=== PATIENT | female | born 1985 | race Caucasian/White ===

== ENCOUNTER 2023-10-23 12:22 | Emergency (ER) | payer MEDICAID ==
[2023-10-23] MEDS ORDERED: Bupivacaine 0.25% 10 ML SDV INJECT ONE (13:17)
== END 2023-10-23 14:08 | disposition home or self-care (01) ==
LOC: LL.ED 12:22
DX: K02.9 Dental caries, unspecified (principal); K03.81 Cracked tooth; Z88.0 Allergy status to penicillin
CPT/HCPCS: 64400; 99282; J3490

== ENCOUNTER 2023-12-16 00:58 | Emergency (ER) | payer SELFPAY ==
[2023-12-16] MEDS ORDERED: Ondansetron 4 MG Tab.DIS PO ONE (01:02)
[2023-12-16] MEDS: Ondansetron 4 MG/2 ML SDV IVPUSH ONE (01:22)
[2023-12-16] MEDS: Lactated Ringers 1,000 ML IV ONE (01:22)
[2023-12-16 01:31] LABS: BASOPHILS ABSOLUTE AUTO 0.03 K/uL (0.00-0.20); BASOPHILS PERCENT AUTO 0.2 % (0.0-2.0); HEMATOCRIT 40.6 % (34.0-46.0); HEMOGLOBIN 13.7 g/dL (11.7-15.5); LYMPHOCYTES ABSOLUTE AUTO 1.09 K/uL (0.50-3.50); LYMPHOCYTES PERCENT AUTO 6.5 % (10.0-50.0); MEAN CORPUSCULAR HEMOGLOBIN 31.4 pg (28.2-33.3); MEAN CORPUSCULAR HGB CONC 33.7 g/dL (31.7-36.0); MEAN CORPUSCULAR VOLUME 92.9 fL (84.0-98.0); MONOCYTES ABSOLUTE AUTO 0.51 K/uL (0.00-1.00); NEUTROPHILS ABSOLUTE AUTO 15.23 K/uL (1.40-7.00); NEUTROPHILS PERCENT AUTO 90.3 % (45.0-80.0); PLATELET COUNT,PLT 333 K/uL (150-350); RED BLOOD CELL COUNT 4.37 M/uL (3.77-5.09); RED CELL DISTRIBUTION WIDTH 13.1 % (11.2-14.1); WHITE BLOOD CELL COUNT,WBC 16.9 K/uL (4.0-10.2)
[2023-12-16 01:51] LABS: PROTHROMBIN TIME 10.2 SEC (9.0-11.1)
[2023-12-16 02:00] LABS: ALANINE AMINOTRANSFERASE,ALT 36 U/L (12-78); ALBUMIN 4.4 g/dL (3.4-5.0); ALKALINE PHOSPHATASE 58 IU/L (46-116); ANION GAP 16.6 meq/L (7-15); ASPARTATE AMNIOTRANSFERASE,AST 23 U/L (15-37); BILIRUBIN TOTAL 0.4 mg/dL (0.2-1.0); BLOOD UREA NITROGEN,BUN 9 mg/dL (7-18); CALCIUM 9.4 mg/dL (8.5-10.1); CARBON DIOXIDE,CO2 23.4 mmol/L (21.0-32.0); CHLORIDE,CL 105 mmol/L (98-107); CREATININE 0.89 mg/dL (0.51-1.17); ESTIMATED GFR 85 mL/min (>=60); GLUCOSE RANDOM 162 mg/dL (70-99); POTASSIUM,K 3.7 mmol/L (3.5-5.1); PROTEIN TOTAL,TP 8.4 g/dL (6.4-8.2); SODIUM,NA 145 mmol/L (136-145)
[2023-12-16] MEDS ORDERED: Naloxone 0.4 MG/ML SDV IVPUSH PRN (02:23)
[2023-12-16] MEDS: fentaNYL 50 MCG/ML SDV IVPUSH ONE (02:31)
[2023-12-16] MEDS: Prochlorperazine 10 MG/2 ML SDV IV ONE (02:31)
[2023-12-16] MEDS: Take Home: Ondansetron 4 MG Tab.DIS, 5 Tab Pack PO ONE (02:44)
== END 2023-12-16 02:45 | disposition home or self-care (01) ==
LOC: LL.ED 00:58
DX: K80.50 Calculus of bile duct without cholangitis or cholecystitis without obstruction (principal); F17.210 Nicotine dependence, cigarettes, uncomplicated; Z88.0 Allergy status to penicillin
CPT/HCPCS: 36415; 80053; 83690; 85025; 85610; 96361; 96374; 96375; 99284-25; J0780; J2405; J3010; J7120; Q0162